=== PATIENT | male | born 1960 | race Caucasian/White ===

== ENCOUNTER 2016-12-03 07:52 | Emergency (ER) | payer MEDICAID ==
[~2016-12-03] VITALS: Ht 182.9 cm; Wt 78.0 kg
[2016-12-03] MEDS ORDERED: ONDANSETRON HCL 4MG/2ML VIAL IV STA (08:13)
[2016-12-03] MEDS ORDERED: SODIUM CHLORIDE 0.9% 1,000 ML IV ONE (08:13)
[2016-12-03] MEDS ORDERED: MECLIZINE 25MG TABLET PO ONE (08:15)
[2016-12-03 08:34] LABS: BASOPHILS % 0.9 % (0.0-2.0); EOSINOPHILS % 0.7 % (0.0-5.0); HEMATOCRIT. 43.5 % (42.0-52.0); HEMOGLOBIN. 15.3 g/dL (14.0-18.0); MEAN CORPUSCULAR HEMOGLOBIN 33.7 pg (28.0-32.0); MEAN CORPUSCULAR VOLUME 95.9 fL (80.0-94.0); MEAN PLATELET VOLUME 7.9 fl (7.4-10.4); MONOCYTES % 4.9 % (2.0-8.0); NEUTROPHILS % 75.5 % (40.0-76.0); PLATELET 164 x1000/uL (130-400); RED BLOOD CELL COUNT 4.54 mill/uL (4.7-6.1); RED CELL DISTRIBUTION WIDTH 13.6 % (11.6-14.6)
[2016-12-03 08:51] LABS: CARBON DIOXIDE 29 mEq/L (21-32); CHLORIDE 107 mEq/L (98-107); TROPONIN I < 0.02 ng/mL (0.00-0.04)
[2016-12-03 08:53] LABS: INR 1.1; PROTHROMBIN TIME 11.5 sec (9.4-11.6)
[2016-12-03 09:13] LABS: CLARITY URINE CLOUDY (CLEAR); COLOR URINE YELLOW (YELLOW); GLUCOSE URINE NEGATIVE (NEGATIVE); KETONES URINE NEGATIVE (NEGATIVE); LEUKOCYTE ESTERASE URINE NEGATIVE (NEGATIVE); NITRITE URINE NEGATIVE (NEGATIVE); OCCULT BLOOD URINE 1+ (NEGATIVE); PH URINE 7.5 (4.5-8.0); PROTEIN URINE NEGATIVE (NEGATIVE); SPECIFIC GRAVITY URINE 1.017 (1.005-1.030)
[2016-12-03 09:53] VITALS: BP 130/86
== END 2016-12-03 09:56 | disposition home or self-care (01) ==
LOC: ER 07:58
DX: H81.10 Benign paroxysmal vertigo, unspecified ear (principal); N39.0 Urinary tract infection, site not specified
CPT/HCPCS: 36415; 80053; 81001; 83880; 84484; 85025; 85610; 93005; 96361; 96374; 99285; J2405; Z7610; J7030; J8597

== ENCOUNTER 2017-09-21 09:10 | Emergency (ER) | payer MEDICAID ==
[~2017-09-21] VITALS: Ht 200.7 cm; Wt 82.0 kg
[2017-09-21 14:45] VITALS: BP 128/82
== END 2017-09-21 14:45 | disposition home or self-care (01) ==
LOC: ER 09:10
DX: M25.421 Effusion, right elbow (principal); J44.9 Chronic obstructive pulmonary disease, unspecified
CPT/HCPCS: 99283

== ENCOUNTER 2018-05-08 15:18 | Emergency (ER) | payer MEDICAID ==
[~2018-05-08] VITALS: Ht 200.7 cm; Wt 69.0 kg
[2018-05-08] MEDS ORDERED: DOCUSATE SODIUM SUGAR FREE 100MG/10ML UDC NG ONE (19:45)
[2018-05-08 20:02] VITALS: BP 114/76
== END 2018-05-08 20:31 | disposition home or self-care (01) ==
LOC: ER 15:18
DX: H61.23 Impacted cerumen, bilateral (principal); F17.200 Nicotine dependence, unspecified, uncomplicated; J44.9 Chronic obstructive pulmonary disease, unspecified
CPT/HCPCS: 69210; 99284

== ENCOUNTER 2018-08-02 12:16 | Emergency (ER) | payer MEDICAID ==
[~2018-08-02] VITALS: Ht 200.7 cm; Wt 89.0 kg
[2018-08-02 12:31] VITALS: BP 119/96
[2018-08-02 14:25] LABS: BASOPHILS % 1.1 % (0.0-2.0); EOSINOPHILS % 0.8 % (0.0-5.0); HEMATOCRIT. 45.1 % (42.0-52.0); HEMOGLOBIN. 15.9 g/dL (14.0-18.0); LYMPHOCYTES % 20.1 % (20.0-50.0); MEAN CORPUSCULAR HEMOGLOBIN 34.1 pg (28.0-32.0); MEAN CORPUSCULAR VOLUME 96.5 fL (80.0-94.0); MEAN PLATELET VOLUME 7.7 fl (7.4-10.4); MONOCYTES % 4.9 % (2.0-8.0); NEUTROPHILS % 73.1 % (40.0-76.0); PLATELET 205 x1000/uL (130-400); RED BLOOD CELL COUNT 4.67 mill/uL (4.7-6.1); RED CELL DISTRIBUTION WIDTH 12.8 % (11.6-14.6)
[2018-08-02 14:31] LABS: CHLORIDE 109 mEq/L (98-107)
== END 2018-08-02 15:04 | disposition home or self-care (01) ==
LOC: ER 12:16
DX: R05 Cough (principal); J44.9 Chronic obstructive pulmonary disease, unspecified; M19.90 Unspecified osteoarthritis, unspecified site; F17.210 Nicotine dependence, cigarettes, uncomplicated
CPT/HCPCS: 36415; 71046; 80053; 83880; 84484; 85025; 93005; 99284; Z7610

== ENCOUNTER 2018-11-16 12:08 | Emergency (ER) | payer MEDICAID ==
[~2018-11-16] VITALS: Ht 200.7 cm; Wt 87.0 kg
[2018-11-16] MEDS ORDERED: ACETAMINOPHEN 500MG TABLET PO ONE (13:00)
[2018-11-16 15:14] VITALS: BP 115/82
== END 2018-11-16 15:14 | disposition home or self-care (01) ==
LOC: ER 12:08
DX: Z48.00 Encounter for change or removal of nonsurgical wound dressing (principal); M19.90 Unspecified osteoarthritis, unspecified site
CPT/HCPCS: 73590; 99283

== ENCOUNTER 2019-02-18 11:05 | Emergency (ER) | payer MEDICAID ==
[~2019-02-18] VITALS: Ht 170.2 cm; Wt 75.0 kg
[2019-02-18 11:15] VITALS: BP 148/89
== END 2019-02-18 11:53 | disposition home or self-care (01) ==
LOC: ER 11:13
DX: L02.421 Furuncle of right axilla (principal)
CPT/HCPCS: 99283

== ENCOUNTER 2019-02-19 17:34 | Emergency (ER) | payer MEDICAID ==
[~2019-02-19] VITALS: Ht 200.7 cm; Wt 78.0 kg
[2019-02-19 19:51] VITALS: BP 132/64
== END 2019-02-19 20:56 | disposition home or self-care (01) ==
LOC: ER 20:25
DX: L73.2 Hidradenitis suppurativa (principal)
CPT/HCPCS: 99281

== ENCOUNTER 2019-03-29 10:30 | Emergency (ER) | payer MEDICAID ==
[~2019-03-29] VITALS: Ht 185.4 cm; Wt 75.0 kg
[2019-03-29] MEDS ORDERED: IPRATROPIUM BROMIDE (0.02%) 0.5MG/2.5ML NEB HHN STA (11:56)
[2019-03-29] MEDS ORDERED: ALBUTEROL (0.083%) 2.5MG/3ML NEB HHN STA (11:56)
[2019-03-29] MEDS ORDERED: PREDNISONE 20MG TABLET PO STA (11:56)
[2019-03-29 12:44] VITALS: BP 98/52
== END 2019-03-29 14:24 | disposition home or self-care (01) ==
LOC: ER 10:30
DX: J44.1 Chronic obstructive pulmonary disease with (acute) exacerbation (principal); I10 Essential (primary) hypertension; F17.210 Nicotine dependence, cigarettes, uncomplicated; Z71.6 Tobacco abuse counseling
CPT/HCPCS: 71045; 94640; 99283; 99406; J7512; J7611; Z7610

== ENCOUNTER 2019-05-10 09:37 | Emergency (ER) | payer MEDICAID ==
[~2019-05-10] VITALS: Ht 190.5 cm; Wt 75.0 kg
[2019-05-10] MEDS ORDERED: ASPIRIN 81MG TABLET PO ONE (10:15)
[2019-05-10 11:04] LABS: BASOPHILS % 0.7 % (0.0-2.0); EOSINOPHILS % 0.7 % (0.0-5.0); HEMATOCRIT. 43.8 % (42.0-52.0); HEMOGLOBIN. 15.4 g/dL (14.0-18.0); LYMPHOCYTES % 23.7 % (20.0-50.0); MEAN CORPUSCULAR HEMOGLOBIN 34.4 pg (28.0-32.0); MEAN CORPUSCULAR VOLUME 97.9 fL (80.0-94.0); MEAN PLATELET VOLUME 7.6 fl (7.4-10.4); MONOCYTES % 6.4 % (2.0-8.0); NEUTROPHILS % 68.5 % (40.0-76.0); PLATELET 187 x1000/uL (130-400); RED BLOOD CELL COUNT 4.47 mill/uL (4.7-6.1); RED CELL DISTRIBUTION WIDTH 13.6 % (11.6-14.6)
[2019-05-10 11:11] LABS: CHLORIDE 107 mEq/L (98-107)
[2019-05-10 14:20] VITALS: BP 138/86
== END 2019-05-10 14:21 | disposition home or self-care (01) ==
LOC: ER 09:37
DX: R07.9 Chest pain, unspecified (principal); R07.81 Pleurodynia; J44.9 Chronic obstructive pulmonary disease, unspecified; F17.200 Nicotine dependence, unspecified, uncomplicated; Z86.73 Personal history of transient ischemic attack (TIA), and cerebral infarction without residual deficits
CPT/HCPCS: 36415; 71045; 80053; 83880; 84484; 85025; 93005; 99285; Z7610

== ENCOUNTER 2019-05-24 10:40 | Emergency (ER) | payer MEDICAID ==
[~2019-05-24] VITALS: Ht 200.7 cm; Wt 68.5 kg
[2019-05-24] MEDS ORDERED: trazodone (10:54)
[2019-05-24] MEDS ORDERED: albuterol (10:54)
[2019-05-24 10:55] VITALS: BP 102/68
== END 2019-05-24 12:20 | disposition home or self-care (01) ==
LOC: ER 10:40
DX: J20.9 Acute bronchitis, unspecified (principal); J44.9 Chronic obstructive pulmonary disease, unspecified; Z86.73 Personal history of transient ischemic attack (TIA), and cerebral infarction without residual deficits; Z86.59 Personal history of other mental and behavioral disorders; Z87.891 Personal history of nicotine dependence
CPT/HCPCS: 99281

== ENCOUNTER 2019-10-10 14:56 | Emergency (ER) | payer MEDICAID ==
[~2019-10-10] VITALS: Ht 200.7 cm; Wt 68.0 kg
[~2019-10-10 14:56] MED LIST: albuterol; trazodone
[2019-10-10 15:31] VITALS: BP 139/93
[2019-10-10] MEDS ORDERED: CEFTRIAXONE SODIUM 250 MG/VIAL IM ONE (17:00)
[2019-10-10] MEDS ORDERED: AZITHROMYCIN 500 MG TABLET PO ONE (17:00)
[2019-10-10 18:07] LABS: CLARITY URINE CLEAR (CLEAR); COLOR URINE YELLOW (YELLOW); KETONES URINE NEGATIVE (NEGATIVE); LEUKOCYTE ESTERASE URINE NEGATIVE (NEGATIVE); NITRITE URINE NEGATIVE (NEGATIVE); OCCULT BLOOD URINE 1+ (NEGATIVE); PH URINE 6.5 (4.5-8.0); PROTEIN URINE NEGATIVE (NEGATIVE); SPECIFIC GRAVITY URINE 1.012 (1.005-1.030); UROBILINOGEN URINE 0.2 E.U./dL (0.2-1.0)
[2019-10-13 06:07] LABS: NEISSERIA GONORRHOEAE NAA Negative (Negative)
== END 2019-10-10 18:36 | disposition home or self-care (01) ==
LOC: ER 14:56
DX: Z20.2 Contact with and (suspected) exposure to infections with a predominantly sexual mode of transmission (principal); F32.9 Major depressive disorder, single episode, unspecified; J44.9 Chronic obstructive pulmonary disease, unspecified
CPT/HCPCS: 81003; 87491; 87591; 96372; 99283; J0696

== ENCOUNTER 2019-11-15 12:20 | Emergency (ER) | payer MEDICAID ==
[~2019-11-15] VITALS: Ht 203.2 cm; Wt 66.0 kg
[2019-11-15 14:30] VITALS: BP 128/87
== END 2019-11-15 14:34 | disposition home or self-care (01) ==
LOC: ER 12:20
DX: Z00.00 Encounter for general adult medical examination without abnormal findings (principal); J44.9 Chronic obstructive pulmonary disease, unspecified; Z98.890 Other specified postprocedural states
CPT/HCPCS: 99281

== ENCOUNTER 2021-04-16 13:27 | Emergency (ER) | payer MEDICAID ==
[~2021-04-16] VITALS: Ht 195.6 cm; Wt 82.0 kg
[2021-04-16 13:30] VITALS: BP 152/87
[2021-04-16] MEDS ORDERED: ASPIRIN 325MG EC TABLET PO ONE (15:30)
[2021-04-16 15:48] LABS: BASOPHILS % 0.9 % (0.0-2.0); HEMATOCRIT. 43.8 % (42.0-52.0); HEMOGLOBIN. 15.3 g/dL (14.0-18.0); LYMPHOCYTES % 15.5 % (20.0-50.0); MEAN CORPUSCULAR HEMOGLOBIN 32.5 pg (28.0-32.0); MEAN CORPUSCULAR VOLUME 93.1 fL (80.0-94.0); MEAN PLATELET VOLUME 6.8 fl (7.4-10.4); MONOCYTES % 7.5 % (2.0-8.0); NEUTROPHILS % 74.1 % (40.0-76.0); PLATELET 209 x1000/uL (130-400); RED CELL DISTRIBUTION WIDTH 12.8 % (11.6-14.6)
[2021-04-16 15:53] LABS: CHLORIDE 109 mEq/L (98-107)
== END 2021-04-16 16:36 | disposition home or self-care (01) ==
LOC: ER 13:27
DX: R07.89 Other chest pain (principal); F41.9 Anxiety disorder, unspecified; F32.A Depression, unspecified; E78.00 Pure hypercholesterolemia, unspecified; J44.9 Chronic obstructive pulmonary disease, unspecified; Z86.11 Personal history of tuberculosis; Z87.891 Personal history of nicotine dependence
CPT/HCPCS: 36415; 71045; 80053; 84484; 85025; 93005; 99285

== ENCOUNTER 2021-09-19 11:28 | Emergency (ER) | payer MEDICAID ==
[~2021-09-19] VITALS: Ht 177.8 cm; Wt 78.0 kg
[2021-09-19] MEDS ORDERED: ACETAMINOPHEN 325MG TABLET PO STA (14:55)
[2021-09-19] MEDS ORDERED: BO1 TP (15:28)
[2021-09-19] MEDS ORDERED: CEPH500C2 PO (15:28)
[2021-09-19] MEDS ORDERED: NAPR-681 PO (15:28)
[2021-09-19 16:28] VITALS: BP 126/74
== END 2021-09-19 16:29 | disposition home or self-care (01) ==
LOC: ER2 11:38 → ER 16:29
DX: L03.031 Cellulitis of right toe (principal); B35.1 Tinea unguium; F32.A Depression, unspecified; J44.9 Chronic obstructive pulmonary disease, unspecified; Z86.11 Personal history of tuberculosis
CPT/HCPCS: 99283